=== PATIENT | male | born 1965 | race Caucasian/White ===

== ENCOUNTER 2017-06-26 13:15 | Emergency (ER) | payer BC, OTHER ==
[2017-06-26] MEDS ORDERED: Bacitracin/Neomycin/Polymyxin B Oint 0.9 GM U/D Packet TOP ONE (13:32)
--- NOTE | 2017-06-26 13:32 | EDM.PDOC ---
ED HPI GENERAL MEDICAL PROBLEM - General Chief Complaint: Lower Extremity Injury/Pain Stated Complaint: Right leg pain Time Seen by Provider: 06/26/17 13:20 Source of Information: Reports: Patient, Old Records ([facility] chart/EMR) History Limitations: Reports: No Limitations - History of Present Illness INITIAL COMMENTS - FREE TEXT/NARRATIVE: Patient drove himself to the emergency room via private automobile after brief evaluation by his regular provider, Ann Wood PA-C, at [facility] for evaluation of progressive 10/10 right anterior distal tibial pain, progressive erythema, and progressive swelling with patient taking 1000 mg of Tylenol and 220 mg of Aleve both at 6 AM and 10 AM this morning. No treatment or significant evaluation was conducted by his primary provider during that visit. No known history of fever, however some beginning drainage from his injury site this morning. Note the patient recently hit his left mayers on the shower frame at home at 17:30 hours on 06/23 with no evidence of foreign body, other significant fall or injury, paresthesias, neurological deficits, etc.. His last DTaP was received on 10/22/09, which was confirmed by the emergency room nurse today. The patient denies any chest pain/pressure, heart flutter, dizziness, orthostasis, orthopnea, diaphoresis, paresthesias, recent decreased exercise tolerance, or any other anginal-type symptoms. No recent history of abdominal pain, heartburn, nausea, diarrhea, melena, gross hematochezia, or any food intolerance, including fatty foods, etc.. The patient also denies any recent cough, wheezing, dyspnea, etc.. He has been cleaning the injury site with soap and water Onset: Today Onset Date: 06/23/17 Onset Time: 17:30 Duration: Getting Worse Location: Reports: Lower Extremity, Right. Denies: Head, Face, Neck, Chest, Abdomen, Back, Pelvis, Upper Extremity, Left, Upper Extremity, Right, Lower Extremity, Left, Radiates to Quality: Reports: Same as Previous Episode, Sharp, Throbbing Severity: Severe Improves with: Reports: Rest Worsens with: Reports: Movement Context: Reports: Trauma (As above) Associated Symptoms: Reports: Rash (Mild redness surrounding injury side as above). Denies: Confusion, Chest Pain, Cough, Diaphoresis, Fever/Chills, Headaches, Loss of Appetite, Malaise, Nausea/Vomiting, Shortness of Breath, Syncope, Weakness Treatments CLOUD AUTOMATION TESTER: Reports: Acetaminophen, NSAIDS Right Leg Pain Score (Numeric/FACES): 10 - Related Data Allergies Allergy/AdvReac Type Severity Reaction Status Date / Time SEASONAL Allergy NASAL-ITCHY Uncoded 02/22/15 00:08 EYES IN SUMMER Home Meds: Home Meds Albuterol [Ventolin HFA] 1 - 2 inhalation INH Q4HR PRN 01/20/14 [History] Fluticasone Propionate [Flovent HFA 220 MCG] 1 inh INH BID 01/20/14 [History] Omeprazole 40 mg PO DAILY PRN 01/20/14 [History] Prochlorperazine [Compazine] 10 mg PO Q6HR PRN 01/20/14 [History] traZODone HCl [Trazodone HCl] 50 - 100 mg PO BEDTIME PRN 01/20/14 [History] Biotin 1,000 mcg PO DAILY 02/07/14 [History] Calcium Pyruvate 600 mg PO DAILY 02/07/14 [History] Cholecalciferol (Vitamin D3) [Vitamin D3] 1,000 units PO Q2D 02/07/14 [History] Ferrous Sulfate 325 mg PO DAILY 02/07/14 [History] Lutein 1 tab PO DAILY 02/07/14 [History] Magnesium Oxide/Mag AA Chelate [Magnesium] 300 mg PO BID 02/07/14 [History] Melatonin 1 - 2 tab PO BEDTIME 02/07/14 [History] Multivitamin with Minerals [Multiple Vitamin] 1 tab PO DAILY 02/07/14 [History] Avery-3 Fatty Acids [Avery-3] 1,000 mg PO DAILY 02/07/14 [History] Potassium 99 mg PO TID 02/07/14 [History] Resveratrol 100 mg PO DAILY 02/07/14 [History] diphenhydrAMINE HCl [Benadryl] 25 mg PO BEDTIME 02/07/14 [History] Ciprofloxacin [Ciprofloxacin HCl] 500 mg PO BID #20 tablet 06/26/17 [Rx] Cyclobenzaprine [Flexeril] 10 mg PO TID PRN 06/26/17 [History] Glycopyrrolate [Robinul Forte] 2 mg PO TID PRN 06/26/17 [History] Naproxen Sodium 220 mg PO BID PRN 06/26/17 [History] Sertraline [Zoloft] 50 mg PO DAILY@1800 06/26/17 [History] Sulfamethoxazole/Trimethoprim [Bactrim Ds Tablet] 1 each PO BID #20 tablet 06/26 [Rx] buPROPion [Wellbutrin XL] 150 mg PO DAILY 06/26/17 [History] busPIRone [Buspar] 5 mg PO TID PRN 06/26/17 [History] Past Medical History HEENT History: Reports: Allergic Rhinitis, Other (See Below) Other HEENT History: Recurrent epistaxis secondary to dry air during winter months Cardiovascular History: Reports: High Cholesterol Respiratory History: Reports: Sleep Apnea Gastrointestinal History: Reports: Diverticulosis, Gastritis, GERD, GI Bleed, Hemorrhoids, Hiatal Hernia, Jaundice, Other (See Below) Other Gastrointestinal History: History of lower GI bleed possibly secondary to diverticulitis requiring blood transfusions in January 2014 Genitourinary History: Reports: Renal Calculus, Other (See Below) Other Genitourinary History: Bilateral nephrolithiasis Musculoskeletal History: Reports: Arthritis, Back Pain, Chronic, Fracture, Neck Pain, Chronic, Osteoarthritis Neurological History: Reports: Headaches, Chronic Psychiatric History: Reports: Anxiety, Depression, Other (See Below) Other Psychiatric History: Chronic insomnia Endocrine/Metabolic History: Reports: Other (See Below) Other Endocrine/Metabolic History: Hypoglycemia Hematologic History: Reports: Anemia, Blood Transfusion(s), Iron Deficiency, Other (See Below) Other Hematologic History: Blood transfusion of 3 units in January 2014 secondary to lower GI bleed - Infectious Disease History Infectious Disease History: Reports: Chicken Pox, Pertussis (Whooping Cough) - Past Surgical History GI Surgical History: Reports: Bariatric Procedure, Cholecystectomy, Colonoscopy , Hernia, Abdominal, Other (See Below) Other GI Surgeries/Procedures: Gastric bypass with previous laparoscopic cholecystectomy, umbilical hernia repair, colonoscopy on 02/11/14 Musculoskeletal Surgical History: Reports: Arthroscopic Procedure, Carpal Tunnel , Shoulder Surgery, Other (See Below) Other Musculoskeletal Surgeries/Procedures:: Arthroscopic right shoulder surgery - Past Imaging History Past Imaging History: Reports: CAT Scan (CT of the head on 02/22/15, CT of the abdomen and pelvis on 10/03/13 and 10/22/08, CTA of the chest with PE protocol on 10/09/07 and 06/24/14, CT and 0 g on 01/22/14), MRI (MRI of the CT spine on ), Upper GI X-Ray/Series (Upper and lower GI in October 2013) Social & Family History - Tobacco Use Smoking Status *Q: Former Smoker Years of Tobacco use: 13 Packs/Tins Daily: 1 Used Tobacco, but Quit: Yes Month Tobacco Last Used: 1994 Smoking Cessation Information Provided To Patient: No Second Hand Smoke Exposure: No - Alcohol Use Alcohol Use History: Yes Days Per Week of Alcohol Use: 1 (No previous DWIs, problems with alcohol abuse, etc.) Number of Drinks Per Day: 6 (Usually beer) Total Drinks Per Week: 6 Alcohol Use in Last Twelve Months: Yes - Recreational Drug Use Recreational Drug Use: No Drug Use in Last 12 Months: No Review of Systems - Review of Systems Review Of Systems: ROS reveals no pertinent complaints other than HPI. ED EXAM, GENERAL - Physical Exam Exam: See Below Exam Limited By: No Limitations General Appearance: Alert, WD/WN, No Apparent Distress Head: Atraumatic, Normocephalic. No: Facial Swelling, Facial Tenderness, Sinus Tenderness Neck: Normal Inspection, Supple, Non-Tender, Full Range of Motion. No: Lymphadenopathy (L), Lymphadenopathy (R), Thyromegaly Respiratory/Chest: No Respiratory Distress, Lungs Clear, Normal Breath Sounds, No Accessory Muscle Use, Chest Non-Tender. No: Pleural Rub, Retractions Cardiovascular: Normal Peripheral Pulses, Regular Rate, Rhythm, No Edema, No Gallop, No JVD, No Murmur, No Rub. No: Gallop/S3, Gallop/S4 Peripheral Pulses: 2+: Radial (L), Radial (R), Dorsalis Pedis (L), Dorsalis Pedis (R) GI/Abdominal: Normal Bowel Sounds, Soft, Non-Tender, No Organomegaly, No Distention, No Abnormal Bruit, No Mass, Pelvis Stable. No: Guarding (Male) Exam: Deferred Rectal (Males) Exam: Deferred Back Exam: Normal Inspection, Full Range of Motion. No: CVA Tenderness (L), CVA Tenderness (R), Muscle Spasm Extremities: Normal Range of Motion, Normal Capillary Refill, Leg Pain ( Moderate palpation pain over the distal mid right anterior tibial region with minimal drainage from the site note long 4 cm in length superficial laceration/ abrasion from the tibial region with mild surrounding +3 erythema and a similar area of soft tissue swelling, no lymphangitis, no evidence of compartment syndrome, additional +1 swelling and some ecchymosis of the distal left leg extending into the foot region with most of the bruising in the proximal foot area), Increased Warmth (Mild), Redness (As above). No: John's Sign Neurological: Alert, Oriented, CN II-XII Intact, Normal Cognition, Normal Gait, Normal Reflexes, No Motor/Sensory Deficits Psychiatric: Normal Affect, Normal Mood Skin Exam: Ecchymosis, Erythema, Increased Warmth (Mild), Wound/Incision. No: Diaphoretic, Lymphangitis, Petechiae Lymphatic: No Adenopathy Course - Vital Signs Last Recorded V/S: Last Vital Signs Temp 37.6 C 06/26/17 13:50 Pulse 110 H 06/26/17 13:50 Resp 24 H 06/26/17 13:50 BP 131/92 H 06/26/17 13:50 Pulse Ox 98 06/26/17 13:50 Vital Signs - 24 hr 06/26/17 13:50 Temperature [ 37.6 C Temporal] Pulse, 110 H Peripheral [ Right Pulse Oximetry] Respiratory 24 H Rate Blood Pressure 131/92 H [Right Upper Arm] O2 Sat by Pulse 98 Oximetry - Orders/Labs/Meds Orders: Active Orders 24 hr Category Date Time Status Peripheral IV Care [RC] . DIRECTED Care 06/26/17 13:36 Active Tibia Fibula Rt [CR] Stat Exams 06/26/17 13:34 Taken CULTURE BLOOD [BC] Stat Lab 06/26/17 14:00 Received CULTURE BLOOD [BC] Stat Lab 06/26/17 14:08 Received CULTURE WOUND + SMEAR [RM] Stat Lab 06/26/17 14:00 Received Blood Culture x2 Reflex Set [OM.PC] Urgent Oth 06/26/17 13:53 Ordered Obtain Past Medical Record [OM.PC] Routine Oth 06/26/17 13:32 Active Peripheral IV Insertion Adult [OM.PC] Routine Oth 06/26/17 13:35 Ordered Labs: Laboratory Tests 06/26/17 06/26/17 Range/Units 14:08 14:08 WBC 5.7 (4.0-10.2) K/uL RBC 4.22 L (4.33-5.41) M/uL Hgb 13.8 (13.1-16.8) g/dL Hct 39.1 (39.0-49.0) % MCV 92.7 (84.0-98.0) fL MCH 32.7 (28.2-33.3) pg MCHC 35.3 (31.7-36.0) g/dL RDW 11.8 (11.2-14.1) % Plt Count 209 (150-350) K/uL Neut % (Auto) 72.5 (45.0-80.0) % Lymph % (Auto) 16.6 (10.0-50.0) % [place] % (Auto) 9.3 (2.0-14.0) % Eos % (Auto) 0.9 (0.0-5.0) % Baso % (Auto) 0.7 (0.0-2.0) % Neut # (Auto) 4.14 (1.40-7.00) K/uL Lymph # (Auto) 0.95 (0.50-3.50) K/uL [place] # (Auto) 0.53 (0.00-1.00) K/uL Eos # (Auto) 0.05 (0.00-0.50) K/uL Baso # (Auto) 0.04 (0.00-0.20) K/uL Sodium 136 (136-145) mmol/L Potassium 4.2 (3.5-5.1) mmol/L Chloride 103 (98-107) mmol/L Carbon Dioxide 23.4 (21.0-32.0) mmol/L BUN 13 (7-18) mg/dL Creatinine 0.77 (0.51-1.17) mg/dL Est Cr Clr Drug Dosing 107.34 mL/min Estimated GFR (MDRD) > 60 mL/min Glucose 91 (74-106) mg/dL Calcium 9.1 (8.5-10.1) mg/dL Total Bilirubin 0.4 (0.2-1.0) mg/dL AST 128 H (15-37) U/L ALT 151 H (12-78) U/L Alkaline Phosphatase 146 H (46-116) IU/L Total Protein 6.8 (6.4-8.2) g/dL Albumin 3.8 (3.4-5.0) g/dL Blood cultures 2 collected Specimen collected from the right leg for culture and sensitivity Meds: Medications Discontinued Medications Generic Name Dose Route Start Last Admin Trade Name Nolan PRN Reason Stop Dose Admin Ceftriaxone Sodium 2 gm/ 100 mls @ 200 mls/hr 06/26/17 13:36 06/26/17 14:13 Sodium Chloride IV 06/26/17 14:05 200 mls/hr ONETIME ONE Administration Neomycin/Polymyxin/Bacitracin 1 each 06/26/17 13:32 06/26/17 14:13 Triple Antibiotic Oint TOP 06/26/17 13:33 1 each ONETIME ONE Administration Sodium Chloride 10 ml 06/26/17 13:35 Saline Flush FLUSH ASDIRECTED PRN Keep Vein Open - Radiology Interpretation Free Text/Narrative:: X-rays of the left tibia and fibula, complete, shows no evidence of fracture, foreign body, dislocation, etc. Mild distal soft tissue swelling noted Departure - Departure Time of Disposition: 14:32 Disposition: Home, Self-Care 01 Condition: Good Clinical Impression: Right leg pain, Laceration, Peptic reflux disease, Elevated LFTs, Mixed anxiety depressive disorder Cellulitis Qualifiers: Site of cellulitis: extremity Site of cellulitis of extremity: lower extremity Laterality: right Qualified Code(s): L03.115 - Cellulitis of right lower limb - Discharge Information Prescriptions: Ciprofloxacin [Ciprofloxacin HCl] 500 mg PO BID #20 tablet Sulfamethoxazole/Trimethoprim [Bactrim Ds Tablet] 1 each PO BID #20 tablet Instructions: Cellulitis, Adult, [id number], Laceration Care, Adult, Easy-to- Read Referrals: Jefe Elizabeth PA-C [Primary Care Provider] - Forms: ED Department Discharge Additional Instructions: 1. Follow-up with your regular provider, Ann Wood PA-C, at [facility] in [place], tomorrow as discussed with recommended repeat CBC, amylase, lipase, comprehensive metabolic panel at that time 2. OTC Aleve with caution with recommended dose of 1-2 tabs by mouth every 12 hours with food as needed. Discontinue all Tylenol and alcohol use until released by your regular provider secondary to your current LFTs elevation 3. Antibacterial soap wash/soak with subsequent antibacterial dressing such as Neosporin, etc. as directed 2 times per day until the wound or laceration site completely heals. Keep the area clean and dry with activity restrictions as discussed. 4. BenGay or equivalent, heating pad, and/or ice packs as directed. 5. Increase activity as tolerated/discussed - Problem List & Annotations (1) Cellulitis SNOMED Code(s): 346375277 Code(s): L03.90 - CELLULITIS, UNSPECIFIED Status: Acute Priority: High Onset Date: ~06/26/17 Annotation/Comment:: High-dose IV Rocephin given in the emergency room. Secondary to LFTs elevation planned discharge on Augmentin will be changed to Cipro and Bactrim DS therapy or additional possible MRSA coverage. Neosporin dressing placed by the nurse after previous wound cleansing. Specimen for culture and sensitivity collected. Close follow-up by his regular provider as per discharge instructions Qualifiers: Site of cellulitis: extremity Site of cellulitis of extremity: lower extremity Laterality: right Qualified Code(s): L03.115 - Cellulitis of right lower limb (2) Elevated LFTs SNOMED Code(s): 159068615 Code(s): R79.89 - OTHER SPECIFIED ABNORMAL FINDINGS OF BLOOD CHEMISTRY Status: Acute Priority: High Onset Date: 06/26/17 Annotation/Comment:: Significant LFTs elevation as above, however nonsymptomatic at this time. No known previous history of hepatitis or recent known infection. Close follow-up by his regular provider as per discharge instructions. Consider PT/INR and PTT, ROSA MARIA, hepatitis panel, abdominal ultrasound versus CT scan, etc. if his LFTs elevation persists. The patient does state that he has been using quite amount of Tylenol recently for his chronic headaches. He was strongly encouraged not to use Tylenol, alcohol, etc. until released by his regular provider. (3) Laceration SNOMED Code(s): 552131620 Code(s): SEL5826 - Status: Acute Priority: Medium Onset Date: Annotation/Comment:: DTaP is up-to-date as above. Neosporin dressing placed with wound care by the nurse as above (4) Right leg pain SNOMED Code(s): 687796931 Code(s): M79.604 - PAIN IN RIGHT LEG Status: Acute Priority: High Onset Date: 06/23/17 Annotation/Comment:: Negative x-rays as above (5) Hypoglycemia SNOMED Code(s): 626482670 Code(s): E16.2 - HYPOGLYCEMIA, UNSPECIFIED Status: Chronic Priority: Medium Annotation/Comment:: Distant hypoglycemia nonproblematic at this time (6) Peptic reflux disease SNOMED Code(s): 54087622 Code(s): K21.9 - GASTRO-ESOPHAGEAL REFLUX DISEASE WITHOUT ESOPHAGITIS Status: Chronic Priority: Medium Annotation/Comment:: Stable by patient history (7) Mixed anxiety depressive disorder SNOMED Code(s): 371731535 Code(s): F41.8 - OTHER SPECIFIED ANXIETY DISORDERS Status: Chronic Priority: Medium Annotation/Comment:: Stable by patient history with patient on multiple sedating medications at this time. He did request additional pain medications, however secondary to his elevated LFTs and multiple medications for his depression as above no further narcotic medications, etc. is advisable at this time. Symptomatical treatment as per discharge instructions. Close follow-up by his regular provider - Problem List Review Problem List Initiated/Reviewed/Updated: Yes - My Orders Last 24 Hours: My Active Orders 06/26/17 13:32 Obtain Past Medical Record [OM.PC] Routine 06/26/17 13:34 Tibia Fibula Rt [CR] Stat 06/26/17 13:35 Peripheral IV Insertion Adult [OM.PC] Routine 06/26/17 13:36 Peripheral IV Care [RC] . DIRECTED 06/26/17 13:53 Blood Culture x2 Reflex Set [OM.PC] Urgent 06/26/17 14:00 CULTURE BLOOD [BC] Stat CULTURE WOUND + SMEAR [RM] Stat 06/26/17 14:08 CULTURE BLOOD [BC] Stat - Assessment/Plan Last 24 Hours: My Active Orders 06/26/17 13:32 Obtain Past Medical Record [OM.PC] Routine 06/26/17 13:34 Tibia Fibula Rt [CR] Stat 06/26/17 13:35 Peripheral IV Insertion Adult [OM.PC] Routine 06/26/17 13:36 Peripheral IV Care [RC] . DIRECTED 06/26/17 13:53 Blood Culture x2 Reflex Set [OM.PC] Urgent 06/26/17 14:00 CULTURE BLOOD [BC] Stat CULTURE WOUND + SMEAR [RM] Stat 06/26/17 14:08 CULTURE BLOOD [BC] Stat Assessment:: As above Plan: As above. Extensive precautions were given to the patient, who is in agreement with the treatment plan. See Patient Instructions for further treatment and plan.
[2017-06-26] MEDS ORDERED: Sodium Chloride 0.9% 10 ML Syringe FLUSH PRN (13:35)
[2017-06-26] MEDS ORDERED: cefTRIAXone 2 GM in Sodium Chloride 0.9% 100 ML IV ONE (13:36)
[2017-06-26 13:52] VITALS: BP 131/92
[2017-06-26 14:28] LABS: CHLORIDE,CL 103 mmol/L (98-107); SODIUM,NA 136 mmol/L (136-145)
== END 2017-06-26 14:32 | disposition home or self-care (01) ==
LOC: LL.ED 13:15
DX: S81.811A Laceration without foreign body, right lower leg, initial encounter (principal); L03.115 Cellulitis of right lower limb; K21.9 Gastro-esophageal reflux disease without esophagitis; R79.89 Other specified abnormal findings of blood chemistry; E78.00 Pure hypercholesterolemia, unspecified; F41.8 Other specified anxiety disorders; M19.90 Unspecified osteoarthritis, unspecified site; F41.9 Anxiety disorder, unspecified; F32.9 Major depressive disorder, single episode, unspecified; Z98.84 Bariatric surgery status; Z90.49 Acquired absence of other specified parts of digestive tract; Z91.09 Other allergy status, other than to drugs and biological substances; Z87.891 Personal history of nicotine dependence; Z79.899 Other long term (current) drug therapy; X58.XXXA Exposure to other specified factors, initial encounter
CPT/HCPCS: 36415; 73590; 80053; 85025; 87040; 87070; 87205; 96365; 99284; J0696; J7050

== ENCOUNTER 2024-05-16 07:10 | Emergency (ER) | payer BC ==
[2024-05-16 07:15] VITALS: BP 139/94; PULSE 94
[2024-05-16] MEDS: Sodium Chloride 0.9% 10 ML Syringe FLUSH PRN (07:28)
[2024-05-16] MEDS: Ondansetron 4 MG/2 ML SDV IVPUSH ONE (07:28)
[2024-05-16 07:29] LABS: BASOPHILS ABSOLUTE AUTO 0.02 K/uL (0.00-0.20); BASOPHILS PERCENT AUTO 0.3 % (0.0-2.0); EOSINOPHILS ABSOLUTE AUTO 0.03 K/uL (0.00-0.50); EOSINOPHILS PERCENT AUTO 0.4 % (0.0-5.0); HEMATOCRIT 40.2 % (39.0-49.0); HEMOGLOBIN 13.8 g/dL (13.1-16.8); LYMPHOCYTES ABSOLUTE AUTO 0.84 K/uL (0.50-3.50); LYMPHOCYTES PERCENT AUTO 12.6 % (10.0-50.0); MEAN CORPUSCULAR HGB CONC 34.3 g/dL (31.7-36.0); MEAN CORPUSCULAR VOLUME 78.7 fL (84.0-98.0); MONOCYTES ABSOLUTE AUTO 0.66 K/uL (0.00-1.00); MONOCYTES PERCENT AUTO 9.9 % (2.0-14.0); NEUTROPHILS ABSOLUTE AUTO 5.12 K/uL (1.40-7.00); NEUTROPHILS PERCENT AUTO 76.8 % (45.0-80.0); PLATELET COUNT,PLT 278 K/uL (150-350); RED BLOOD CELL COUNT 5.11 M/uL (4.33-5.41); RED CELL DISTRIBUTION WIDTH 16.5 % (11.2-14.1); WHITE BLOOD CELL COUNT,WBC 6.7 K/uL (4.0-10.2)
[2024-05-16] MEDS: Sodium Chloride 0.9% 1,000 ML IV ONE ×2 (07:30→08:45)
[2024-05-16] MEDS: Ketorolac 15 MG/ML SDV IVPUSH ONE (07:42)
[2024-05-16 07:53] LABS: BILIRUBIN TOTAL 0.6 mg/dL (0.2-1.0); CALCIUM 9.5 mg/dL (8.5-10.1); CARBON DIOXIDE,CO2 27.5 mmol/L (21.0-32.0); CREATININE 0.8 mg/dL (0.51-1.17); MAGNESIUM 1.8 mg/dL (1.8-2.4); POTASSIUM,K 3.1 mmol/L (3.5-5.1); PROTEIN TOTAL,TP 7.5 g/dL (6.4-8.2)
[2024-05-16 07:55] LABS: ANION GAP 14.6 meq/L (7-15)
[2024-05-16] MEDS: Potassium Chloride 20 MEQ Tab.ER PO ONE (08:12)
[2024-05-16] MEDS: Tamsulosin 0.4 MG Cap.ER PO ONE (08:12)
[2024-05-16 09:02] LABS: APPEARANCE,URINE SLIGHTLY CLOUDY; BILIRUBIN,URINE NEGATIVE (NEGATIVE); COLOR,URINE YELLOW; GLUCOSE,URINE NEGATIVE (NEGATIVE); KETONES,URINE TRACE mg/dL (NEGATIVE); LEUKOCYTE ESTERASE,URINE NEGATIVE (NEGATIVE); NITRITE,URINE NEGATIVE (NEGATIVE); OCCULT BLOOD,URINE NEGATIVE (NEGATIVE); PROTEIN,URINE NEGATIVE (NEGATIVE); UROBILINOGEN,URINE 0.2 E.U./dL (0.2-1.0)
== END 2024-05-16 10:01 | disposition home or self-care (01) ==
LOC: LL.ED 07:10
DX: E87.6 Hypokalemia (principal); R94.5 Abnormal results of liver function studies; R10.9 Unspecified abdominal pain; E78.00 Pure hypercholesterolemia, unspecified; K21.9 Gastro-esophageal reflux disease without esophagitis; Z91.09 Other allergy status, other than to drugs and biological substances; Z79.51 Long term (current) use of inhaled steroids; Z79.899 Other long term (current) drug therapy
CPT/HCPCS: 36415; 74176; 80053; 80307; 81003; 83735; 85025; 96361; 96374; 96375; 99284; 99284-25; A9270-GY; J1885; J2405; J3490; J7030

== ENCOUNTER 2024-05-29 11:01 | Day surgery (SDC) | payer BC, OTHER ==
[~2024-05-29 11:01] MED LIST: Midazolam 1 MG/ML 2 ML SDV ONE; Propofol 200 MG/20 ML SDV ONE
[2024-05-29] MEDS ORDERED: Sodium Chloride 0.9% 10 ML Syringe FLUSH PRN (11:15)
[2024-05-29] MEDS: Lactated Ringers 1,000 ML IV SCH (11:28)
[2024-05-29 13:17] VITALS: BP 119/69; PULSE 63
== END 2024-05-29 13:32 ==
LOC: LL.SDS 11:01
PROVIDERS: ATTEND Surgery
DX: Z12.11 Encounter for screening for malignant neoplasm of colon (principal); K57.30 Diverticulosis of large intestine without perforation or abscess without bleeding; E87.6 Hypokalemia; D50.9 Iron deficiency anemia, unspecified; I10 Essential (primary) hypertension; E78.5 Hyperlipidemia, unspecified; J45.909 Unspecified asthma, uncomplicated; E66.9 Obesity, unspecified; Z87.891 Personal history of nicotine dependence; Z68.29 Body mass index [BMI] 29.0-29.9, adult; Z79.899 Other long term (current) drug therapy
CPT/HCPCS: 00812; J2250; J2704; J7120